=== PATIENT | female | born 2000 | race American Indian/Alaskan Native ===

== ENCOUNTER 2018-06-05 21:51 | Outpatient (CLI) | payer MEDICAID ==
[2018-06-05 22:20] VITALS: BP 114/72
[2018-06-05] MEDS ORDERED: LACTATED RINGERS 1,000 ML ONE (22:52)
[2018-06-05] MEDS ORDERED: LACTATED RINGERS 1,000 ML IV ONE (23:02)
[2018-06-06] LABS: Bilirubin,Urine NEG (Negative); Blood,Urine NEG (Negative); Color,Urine Yellow (Yellow); Hyaline Casts,Urine 6 /LPF; Protein,Urine <15 mg/dL mg/dL (Negative); RBC,Urine < 1.0 /HPF (0.0-6.0); Urobilinogen,Urine < 2.0 mg/dL (<2.0)
--- NOTE | 2018-06-06 01:47 | Ultrasound Report ---
FINAL REPORT PROCEDURE: US OB BPP WO NON-STRESS TECHNIQUE: Real-time limited sonographic examination was performed for evaluation of size, position, heartbeat, fluid volume for each fetus with image documentation (1 or more fetuses). CPT 76728 HISTORY: decrease movement COMPARISON: No prior studies are available for comparison. FINDINGS: biophysical profile: The breathing movements: 2. movements: 2. posterior and tone: 2. Amniotic fluid volume: 2. Total score: 8/8. heart rate 155 beats per minute. The amniotic fluid index 14.3 centimeters. IMPRESSION: Normal biophysical profile..
--- NOTE | 2018-06-06 01:55 | Ultrasound Report ---
FINAL REPORT EXAM: US OB LIMITED HISTORY: decrease movement COMPARISON: Biophysical profile study from the same date. TECHNIQUE: Several real-time grayscale and color Doppler images were obtained. FINDINGS: Single live IUP. Limited exam performed for evaluation of amniotic fluid. heart rate 155 beats per minute. BENITO within normal limits 14.3 centimeters. IMPRESSION: Limited exam performed for evaluation of amniotic fluid index. BENITO 14.3 centimeters. Single live IUP demonstrated.
== END 2018-06-06 00:25 | disposition home or self-care (01) ==
LOC: TRG 21:51 → LD 22:07 → TRG 06-06 00:25
PROVIDERS: ATTEND Obstetrics & Gynecology
DX: O62.8 Other abnormalities of forces of labor (principal); O46.93 Antepartum hemorrhage, unspecified, third trimester; Z3A.35 35 weeks gestation of pregnancy
CPT/HCPCS: 59025; 76815; 76819; 81001; 96360; J7120

== ENCOUNTER 2018-06-08 19:48 | Outpatient (CLI) | payer MEDICAID ==
[2018-06-08 20:05] VITALS: BP 124/64
[2018-06-08 21:10] LABS: Bacteria,Urine 4+ /HPF (Negative); Bilirubin,Urine NEG (Negative); Blood,Urine SM (Negative); Color,Urine Yellow (Yellow); Mucus,Urine FEW /HPF; Protein,Urine <15 mg/dL mg/dL (Negative); Urobilinogen,Urine < 2.0 mg/dL (<2.0)
[2018-06-08 21:12] LABS: WBC,Urine > 182.0 /HPF (0.0-6.0)
[2018-06-08] MEDS ORDERED: LACTATED RINGERS 1,000 ML ONE (21:22)
[2018-06-08] MEDS ORDERED: LACTATED RINGERS 1,000 ML IV SCH (22:00)
[2018-06-08] MEDS ORDERED: TYLENOL PO ONE (22:02)
== END 2018-06-08 23:55 | disposition home or self-care (01) ==
LOC: TRG 19:48
PROVIDERS: ATTEND Obstetrics & Gynecology
DX: O62.8 Other abnormalities of forces of labor (principal); O26.893 Other specified pregnancy related conditions, third trimester; M54.9 Dorsalgia, unspecified; Z3A.35 35 weeks gestation of pregnancy
CPT/HCPCS: 59025; 81001; J7120

== ENCOUNTER 2019-02-19 13:44 | Emergency (ER) | payer MEDICAID ==
--- NOTE | 2019-02-19 13:59 | Emergency Department Report ---
Blank Doc - Documentation Documentation: This is a 18-year-old female that presents with SOB. Denies any chest pain. This initial assessment/diagnostic orders/clinical plan/treatment(s) is/are subject to change based on patient's health status, clinical progression and re- assessment by fellow clinical providers in the ED. Further treatment and workup at subsequent clinical providers discretion. Patient/guardians urged not to elope from the ED as their condition may be serious if not clinically assessed and managed. Initial orders include: 1- Patient sent to [facility] for further evaluation and treatment 2- EKG 3- CXR
[2019-02-19 14:00] VITALS: BP 106/68
[2019-02-19 14:56] LABS: Eosinophils # (Auto) 0.1 K/mm3 (0.0-0.4); Eosinophils % (Auto) 1.5 % (0.0-4.3); Monocytes # (Auto) 0.4 K/mm3 (0.0-0.8); Monocytes % (Auto) 6.5 % (0.0-7.3)
[2019-02-19 15:16] LABS: BUN/Creatinine Ratio 16; Blood Urea Nitrogen 13 mg/dL (7-17); Calcium 9.9 mg/dL (8.4-10.2); Hemolysis Index 12
[2019-02-19 15:29] LABS: Basophils % (Auto) 0.8 % (0.0-1.8); Hematocrit 41.1 % (30.3-42.9); Hemoglobin 13.2 gm/dl (10.1-14.3); Lymphocytes # (Auto) 1.7 K/mm3 (1.2-5.4); Lymphocytes % (Auto) 26.5 % (13.4-35.0); Mean Corpuscular HGB Conc 32 % (30-34); Mean Corpuscular Volume 79 fl (79-97); Platelet Count 333 K/mm3 (140-440); Red Blood Count 5.18 M/mm3 (3.65-5.03); Red Cell Distribution Width 15.7 % (13.2-15.2)
--- NOTE | 2019-02-19 15:43 | XRay Report ---
ROUTINE CHEST, TWO VIEWS: HISTORY: Short of breath. The trachea, heart, mediastinal contour, lung romero and bony thorax are unremarkable. IMPRESSION: Unremarkable chest x-ray.
--- NOTE | 2019-02-19 15:44 | Emergency Department Report ---
- General Chief complaint: Medical Clearance Stated complaint: CHEST PAIN/SOB/LIGHTHEADED Time Seen by Provider: 02/19/19 13:58 Source: patient Mode of arrival: Ambulatory Limitations: No Limitations - History of Present Illness Initial comments: Cathleen is a 18 yo female who presents with shortness and malaise for the past 2 days. Feels flushed at night. [place] her iron was low. Denies pain. MD Complaint: generalized weakness -: Gradual Location: generalized Severity scale (0 -10): 0 Consistency: intermittent Improves with: none Worsens with: other (worse when she lays down at night) Associated Symptoms: denies other symptoms - Related Data Home Medications Medication Instructions Recorded Confirmed Last Taken Vit,Calc76/Iron/Folic 1 tab PO DAILY 06/06/18 07/02/18 07/01/18 [Pnv 29-1 Tablet] Allergies Allergy/AdvReac Type Severity Reaction Status Date / Time No Known Allergies Allergy Verified 07/02/18 23:24 ED Review of Systems ROS: Stated complaint: CHEST PAIN/SOB/LIGHTHEADED Other details as noted in HPI Comment: All other systems reviewed and negative Constitutional: malaise. denies: fever Respiratory: denies: cough Cardiovascular: denies: chest pain ED Past Medical Hx - Past Medical History Previous Medical History?: No Hx Hypertension: No Hx Diabetes: No Hx Deep Vein Thrombosis: No Hx Renal Disease: No Hx Sickle Cell Disease: No Hx Seizures: No Hx Asthma: No Hx HIV: No - Surgical History Past Surgical History?: No - Social History Smoking Status: Never Smoker Substance Use Type: None - Medications Home Medications: Home Medications Medication Instructions Recorded Confirmed Last Taken Type Vit,Calc76/Iron/Folic 1 tab PO DAILY 06/06/18 07/02/18 07/01/18 History [Pnv 29-1 Tablet] ED Physical Exam - General Limitations: No Limitations General appearance: alert, in no apparent distress - Head Head exam: Present: atraumatic, normocephalic - Eye Eye exam: Present: normal appearance - ENT ENT exam: Present: mucous membranes moist - Neck Neck exam: Present: normal inspection, full ROM - Respiratory Respiratory exam: Present: normal lung sounds bilaterally. Absent: respiratory distress, wheezes, rales, rhonchi - Cardiovascular Cardiovascular Exam: Present: regular rate, normal rhythm, normal heart sounds. Absent: systolic murmur, diastolic murmur, rubs, gallop - GI/Abdominal GI/Abdominal exam: Present: soft, normal bowel sounds. Absent: distended, tenderness - Extremities Exam Extremities exam: Present: normal inspection - Back Exam Back exam: Present: normal inspection - Neurological Exam Neurological exam: Present: alert, oriented X3 - Psychiatric Psychiatric exam: Present: normal affect, normal mood - Skin Skin exam: Present: warm, dry, intact, normal color. Absent: rash ED Course Vital Signs 02/19/19 13:58 Temperature 98.5 F Pulse Rate 83 Respiratory 16 Rate Blood Pressure 106/68 O2 Sat by Pulse 99 Oximetry ED Medical Decision Making - Lab Data Result diagrams: 02/19/19 14:50 02/19/19 14:50 - Radiology Data Radiology results: report reviewed interpreted by me: Chest X-ray PA/Lateral two-view radiographs, interpreted by me. My impression: No infiltrate, no pneumothorax, normal cardiac silhouette, normal mediastinum, no gross osseous abnormality, no acute process - Medical Decision Making Cathleen appears well with mild malaise and shortness of breath. Normal w/u. Normal chest x-ray CBC chemistry.PERC negative for PE Given reassurance and referral to clinic. Critical care attestation.: If time is entered above; I have spent that time in minutes in the direct care of this critically ill patient, excluding procedure time. ED Disposition Clinical Impression: Dyspnea, Generalized weakness Disposition: DC-01 TO HOME OR SELFCARE Is pt being admited?: No Does the pt Need Aspirin: No Condition: Stable Instructions: Dyspnea (ED), Weakness (ED) Referrals: [facility] [Outside] - 3-5 Days Forms: Work/School Release Form(ED)
== END 2019-02-19 16:00 | disposition home or self-care (01) ==
LOC: ED 13:44
DX: R53.81 Other malaise (principal); R06.00 Dyspnea, unspecified; R53.1 Weakness
CPT/HCPCS: 36415; 71046; 80048; 85025; 93005; 93010; 99284

== ENCOUNTER 2019-04-03 07:04 | Emergency (ER) | payer MEDICAID ==
[2019-04-03 07:48] VITALS: BP 120/76
--- NOTE | 2019-04-03 09:10 | Emergency Department Report ---
ED General Adult HPI - General Chief complaint: Wound/Laceration Stated complaint: LACERATION TO RIGHT EYE Time Seen by Provider: 04/03/19 08:59 Source: patient Mode of arrival: Ambulatory Limitations: No Limitations - History of Present Illness Initial comments: Patient is a 18-year-old female who suffered a small laceration at the right advent. Patient states she was reaching down to grab her follow and she hit the right side of her face on a picture that was on the nightstand. Patient has a small laceration to the right advent. Bleeding was controlled prior to arrival. Patient states she has 3 out of 10 pain as aching and throbbing. Patient denies any loss consciousness. - Related Data Home Medications Medication Instructions Recorded Confirmed Last Taken Vit,Calc76/Iron/Folic 1 tab PO DAILY 06/06/18 07/02/18 07/01/18 [Pnv 29-1 Tablet] Allergies Allergy/AdvReac Type Severity Reaction Status Date / Time No Known Allergies Allergy Verified 04/03/19 07:06 ED Review of Systems ROS: Stated complaint: LACERATION TO RIGHT EYE Other details as noted in HPI Comment: All other systems reviewed and negative ED Past Medical Hx - Past Medical History Hx Hypertension: No Hx Diabetes: No Hx Deep Vein Thrombosis: No Hx Renal Disease: No Hx Sickle Cell Disease: No Hx Seizures: No Hx Asthma: No Hx HIV: No - Social History Smoking Status: Never Smoker Substance Use Type: None - Medications Home Medications: Home Medications Medication Instructions Recorded Confirmed Last Taken Type Vit,Calc76/Iron/Folic 1 tab PO DAILY 06/06/18 07/02/18 07/01/18 History [Pnv 29-1 Tablet] ED Physical Exam - General Limitations: No Limitations General appearance: alert, in no apparent distress - Head Head exam: Present: normocephalic. Absent: atraumatic (small 1cm laceration to the rightb advent) - Eye Eye exam: Present: normal appearance, PERRL, EOMI - ENT ENT exam: Present: mucous membranes moist - Respiratory Respiratory exam: Absent: respiratory distress - Extremities Exam Extremities exam: Present: normal inspection, full ROM - Neurological Exam Neurological exam: Present: alert, altered, oriented X3 - Skin Skin exam: Present: warm, dry, normal color ED Course Vital Signs 04/03/19 07:47 Temperature 97.6 F Pulse Rate 72 Respiratory 16 Rate Blood Pressure 120/76 O2 Sat by Pulse 98 Oximetry - Laceration /Wound Repair Right Face Wound Location: head Wound Length (cm): 1 Wound's Depth, Shape: superficial, linear Wound Explored: clean Irrigated w/ Saline (ccs): 100 Betadine Prep?: No Wound Repaired With: Dermabond ED Medical Decision Making - Medical Decision Making Patient is a 18-year-old female suffered a small laceration to the right advent. This was closed Dermabond. Patient tolerated procedure well. Patient be discharged home. Critical care attestation.: If time is entered above; I have spent that time in minutes in the direct care of this critically ill patient, excluding procedure time. ED Disposition Clinical Impression: Laceration Disposition: DC-01 TO HOME OR SELFCARE Is pt being admited?: No Does the pt Need Aspirin: No Condition: Stable Instructions: Skin Adhesive Care (ED) Referrals: NAI GALVAN MD [Primary Care Provider] - 3-5 Days Forms: Work/School Release Form(ED) Time of Disposition: 09:09
== END 2019-04-03 09:33 | disposition home or self-care (01) ==
LOC: ED 07:04
DX: S01.81XA Laceration without foreign body of other part of head, initial encounter (principal); W22.8XXA Striking against or struck by other objects, initial encounter; Y93.89 Activity, other specified; Y92.89 Other specified places as the place of occurrence of the external cause; Y99.8 Other external cause status
CPT/HCPCS: 99282

== ENCOUNTER 2019-11-15 09:49 | Emergency (ER) | payer SELFPAY ==
--- NOTE | 2019-11-15 12:37 | Emergency Department Report ---
HPI - General Chief Complaint: Sore Throat Time Seen by Provider: 11/15/19 12:16 - HPI HPI: This is a 19-year-old female here yesterday to be checked for strep throat due to complaining of sore throat for 3-4 days. Strep test yesterday was negative and patient returned today said that she do not she has strep throat because she has lots of pus and redness of the throat, painful throat with or without swallowing, she said her neck decides are swollen and she had a temperature of 101 last night that she took medication for. Any drooling, cough or difficulty breathing. Has any chest pain or shortness of breath. Reports chills but denies any fever. Pain is constant but worse with swallowing. Pain is burning. ED Past Medical Hx - Past Medical History Previous Medical History?: No Hx Hypertension: No Hx Diabetes: No Hx Deep Vein Thrombosis: No Hx Renal Disease: No Hx Sickle Cell Disease: No Hx Seizures: No Hx Asthma: No Hx HIV: No - Surgical History Past Surgical History?: No - Family History Family history: hypertension - Social History Smoking Status: Never Smoker Substance Use Type: None - Medications Home Medications: Home Medications Medication Instructions Recorded Confirmed Last Taken Type Vit,Calc76/Iron/Folic 1 tab PO DAILY 06/06/18 07/02/18 07/01/18 History [Pnv 29-1 Tablet] Ibuprofen [Motrin] 800 mg PO Q8HR PRN #12 tablet 11/15/19 Unknown Rx Penicillin V Potassium 500 mg PO Q8H 10 Days #30 tablet 11/15/19 Unknown Rx ED Review of Systems ROS: Stated complaint: SORE THROAT Other details as noted in HPI Constitutional: chills, fever ENT: throat pain. denies: ear pain, dental pain, hearing loss, congestion Respiratory: denies: cough, shortness of breath, SOB with exertion, wheezing Gastrointestinal: denies: abdominal pain, vomiting Musculoskeletal: denies: back pain, arthralgia Skin: denies: rash Neurological: denies: headache, numbness, paresthesias, abnormal gait, vertigo Physical Exam - Physical Exam General: 19-year-old female well-nourished well-developed in no acute distress. Physical Exam: Head: Normocephalic atraumatic Ears:BIateral TM pearly torres . Per EAC with normal exam. No mastoid bone tenderness. Mouth: Moist, Positive pharyngeal erythema and exudate . Negative tonsillar enlargement. . UVULA midline and oral airways patent. No peritonsillar abscess Neck: Nontender to palpate, supple, normal range of motion. positive cervical adenopathy. No c-spine tenderness. Nose: Bilateral nasal mucosa normal exam Eyes: Bilateral Sclerae and conjunctiva without injection. Bilateral pupils equal and reactive to light. Bilateral lids are normal. Lungs: Clear to auscultate bilaterally, no rhonchi wheezes or rales. Normal work of breathing and no chest wall tenderness CV: S1, S2. Regular rate and rhythm negative murmur. Abdomen: Nontender to palpation in all quadrants: No guarding or rebound tenderness. Positive bowel sounds in all quadrants Extremity: No clubbing, cyanosis or edema. +2 pulses Skin: Clean dry and intact, no rashes or lesions Psych: Normal mood and behavior ED Course - Reevaluation(s) Reevaluation #1: 11/15/19 12:51 Patient's stable throughout ED course. Discharge home with prescription for penicillin and Motrin ED Medical Decision Making - Medical Decision Making This is a 19-year-old female here for complaints of ongoing sore throat and reports that she was here yesterday and this was done and they report that was negative. Based on [facility] criteria with patient having bilateral anterior cervical lymph nodes, chills, pharyngeal erythema with cobblestoning and malodorous breath with absence of cough or any other respiratory symptoms. I will go ahead and treat her for strep. She said her strep test yesterday was negative. I discuss treatment palpation and she voiced understanding. I also discussed that she needs to follow-up with primary care and if she does not have one to follow-up with some [facility] and if she develops difficulty breathing or any other symptoms this worsening to return to emergency room. Discharge home with prescription for PCN and motrin Critical care attestation.: If time is entered above; I have spent that time in minutes in the direct care of this critically ill patient, excluding procedure time. ED Disposition Clinical Impression: Exudative pharyngitis Disposition: DC-01 TO HOME OR SELFCARE Is pt being admited?: No Does the pt Need Aspirin: No Condition: Stable Instructions: Pharyngitis (ED), Strep Throat (ED) Additional Instructions: gargle warm salt water 3-4 times a day Take medication as prescribed and make sure you take all antibiotic as prescribed and take Motrin with food as this can cause some irritation to stomach lining when taken an empty stomach F/U with primary care physician as discussed and 2-3 days If he condition worsens, return to the emergency room Referrals: PRIMARY CARE, [Primary Care Provider] - 2-3 Days [facility] [Outside] - 2-3 Days Forms: Work/School Release Form(ED)
[2019-11-15 12:53] VITALS: BP 126/81
== END 2019-11-15 13:14 | disposition home or self-care (01) ==
LOC: ED 09:49
DX: J02.9 Acute pharyngitis, unspecified (principal); Z79.899 Other long term (current) drug therapy

== ENCOUNTER 2019-12-11 20:57 | Emergency (ER) | payer SELFPAY ==
[2019-12-11 21:03] VITALS: BP 129/71
--- NOTE | 2019-12-11 22:14 | Emergency Department Report ---
Blank Doc - Documentation Documentation: 19-year-old female that presents with abscess to buttock area. This initial assessment/diagnostic orders/clinical plan/treatment(s) is/are subject to change based on patient's health status, clinical progression and re- assessment by fellow clinical providers in the ED. Further treatment and workup at subsequent clinical providers discretion. Patient/guardians urged not to elope from the ED as their condition may be serious if not clinically assessed and managed. Initial orders include: 1- Patient sent to [facility] for further evaluation and treatment
[2019-12-11] MEDS ORDERED: SULFAMETHOXAZOLE/TRIMETHOPRIM 800/160MG DS TAB PO ONE (23:35)
[2019-12-11] MEDS ORDERED: ONDANSETRON 4 MG ODT TAB PO ONE (23:35)
[2019-12-11] MEDS ORDERED: IBUPROFEN 600 MG TAB PO ONE (23:35)
[2019-12-11] MEDS ORDERED: ACETAMINOPHEN 500 MG TAB PO ONE (23:35)
[2019-12-11] MEDS ORDERED: CLINDAMYCIN 300 MG CAP PO ONE (23:36)
[2019-12-12 00:43] LABS: HCG Qualitative,Urine Negative (Negative)
[2019-12-12 00:58] LABS: Bacteria,Urine 2+ /HPF (Negative); Bilirubin,Urine NEG (Negative); Blood,Urine NEG (Negative); Color,Urine Yellow (Yellow); Mucus,Urine 2+ /HPF; Urobilinogen,Urine < 2.0 mg/dL (<2.0)
--- NOTE | 2019-12-12 01:05 | Emergency Department Report ---
ED General Adult HPI - General Chief complaint: Skin/Abscess/Foreign Body Stated complaint: RAQUEL BUTTOCK PAIN Time Seen by Provider: 12/11/19 22:13 Source: patient Mode of arrival: Ambulatory Limitations: No Limitations - History of Present Illness Initial comments: Patient is A0 19-year-old -[place] female with no past medical history who presents to the ED with complaint of acute onset persistent painful swollen mild erythematous maculopapular nonfluctuant rash on pilonidal area for the last 3 weeks, worse in the last 2 days. Patient denies fever, chills, nausea, vomiting, chest pain, shortness of breath, abdominal pain, urinary or bowel incontinence, saddle paresthesia, dizziness, dysuria or urinary frequency and urgency and vaginal bleeding. MD Complaint: painful swollen erythematous rash on pilonidal rash -: Sudden, week(s) (3) Location: buttocks Radiation: non-radiation Severity scale (0 -10): 10 Quality: aching, sharp Consistency: constant Improves with: none Worsens with: none Associated Symptoms: denies other symptoms. denies: confusion, chest pain, cough, diaphoresis, fever/chills, headaches, loss of appetite, malaise, nausea/vomiting, rash, shortness of breath, syncope, weakness Treatments Prior to Arrival: none - Related Data Home Medications Medication Instructions Recorded Confirmed Last Taken Vit,Calc76/Iron/Folic 1 tab PO DAILY 06/06/18 07/02/18 07/01/18 [Pnv 29-1 Tablet] Previous Rx's Medication Instructions Recorded Last Taken Type Penicillin V Potassium 500 mg PO Q8H 10 Days #30 tablet 11/15/19 Unknown Rx Acetaminophen/Codeine [Tylenol 1 tab PO Q6H PRN #12 tab 12/12/19 Unknown Rx /Codeine # 3 tab] Clindamycin [Clindamycin CAP] 300 mg PO Q8HR #60 capsule 12/12/19 Unknown Rx Ibuprofen [Motrin 800 MG tab] 800 mg PO Q8HR PRN #30 tablet 12/12/19 Unknown Rx Sulfamethoxazole/Trimethoprim 1 each PO Q12H #20 tablet 12/12/19 Unknown Rx [Bactrim DS TAB] Allergies Allergy/AdvReac Type Severity Reaction Status Date / Time No Known Allergies Allergy Verified 04/03/19 07:06 ED Review of Systems ROS: Stated complaint: RAQUEL BUTTOCK PAIN Other details as noted in HPI Constitutional: denies: chills, fever Eyes: denies: eye pain, eye discharge, vision change ENT: denies: ear pain, throat pain Respiratory: denies: cough, shortness of breath, wheezing Cardiovascular: denies: chest pain, palpitations Endocrine: no symptoms reported Gastrointestinal: denies: abdominal pain, nausea, diarrhea Genitourinary: denies: urgency, dysuria, discharge Musculoskeletal: denies: back pain, joint swelling, arthralgia Skin: rash (pilonidal swollen rash), change in color (swollen mildly painful maculopapular rash on pilonidal area). denies: lesions Neurological: denies: headache, weakness, paresthesias Psychiatric: denies: anxiety, depression Hematological/Lymphatic: denies: easy bleeding, easy bruising ED Past Medical Hx - Past Medical History Previous Medical History?: No Hx Hypertension: No Hx Diabetes: No Hx Deep Vein Thrombosis: No Hx Renal Disease: No Hx Sickle Cell Disease: No Hx Seizures: No Hx Asthma: No Hx HIV: No - Surgical History Past Surgical History?: No - Social History Smoking Status: Never Smoker Substance Use Type: None - Medications Home Medications: Home Medications Medication Instructions Recorded Confirmed Last Taken Type Vit,Calc76/Iron/Folic 1 tab PO DAILY 06/06/18 07/02/18 07/01/18 History [Pnv 29-1 Tablet] Penicillin V Potassium 500 mg PO Q8H 10 Days #30 tablet 11/15/19 Unknown Rx Acetaminophen/Codeine [Tylenol 1 tab PO Q6H PRN #12 tab 12/12/19 Unknown Rx /Codeine # 3 tab] Clindamycin [Clindamycin CAP] 300 mg PO Q8HR #60 capsule 12/12/19 Unknown Rx Ibuprofen [Motrin 800 MG tab] 800 mg PO Q8HR PRN #30 tablet 12/12/19 Unknown Rx Sulfamethoxazole/Trimethoprim 1 each PO Q12H #20 tablet 12/12/19 Unknown Rx [Bactrim DS TAB] ED Physical Exam - General Limitations: No Limitations General appearance: alert, in no apparent distress - Head Head exam: Present: atraumatic, normocephalic, normal inspection - Eye Eye exam: Present: normal appearance, PERRL, EOMI Pupils: Present: normal accommodation - ENT ENT exam: Present: normal exam, normal orophraynx, mucous membranes moist, TM's normal bilaterally, normal external ear exam - Neck Neck exam: Present: normal inspection, full ROM. Absent: tenderness, lymphadenopathy - Respiratory Respiratory exam: Present: normal lung sounds bilaterally. Absent: respiratory distress, wheezes, rales, rhonchi, chest wall tenderness, accessory muscle use, decreased breath sounds, prolonged expiratory - Cardiovascular Cardiovascular Exam: Present: regular rate, normal rhythm, normal heart sounds. Absent: systolic murmur, diastolic murmur, rubs, gallop - GI/Abdominal GI/Abdominal exam: Present: soft, normal bowel sounds. Absent: tenderness, rebound, hyperactive bowel sounds, hypoactive bowel sounds - Extremities Exam Extremities exam: Present: normal inspection, full ROM, normal capillary refill - Back Exam Back exam: Present: normal inspection, full ROM. Absent: tenderness, CVA tenderness (R), CVA tenderness (L), muscle spasm, paraspinal tenderness, vertebral tenderness - Neurological Exam Neurological exam: Present: alert, oriented X3, CN II-XII intact, normal gait, reflexes normal - Psychiatric Psychiatric exam: Present: normal affect, normal mood - Skin Skin exam: Present: warm, dry, intact, normal color, rash (swollen tender palpable pilonidal maculopapular nonfluctuant rash) ED Course Vital Signs 12/11/19 21:02 Temperature 98.3 F Pulse Rate 107 H Respiratory 20 Rate Blood Pressure 129/71 O2 Sat by Pulse 97 Oximetry ED Medical Decision Making - Medical Decision Making This is a 19-year-old A0 -F[place] female with no past medical history who presented to the ED with painful swollen mildly erythematous nonfluctuant maculopapular rash on pilonidal area for the last 3 weeks worse in the last 2 days. In the ED, patient is alert and oriented x3 and is not in distress but appears to be in pain. Patient was treated for pain in the ED and also given initial oral antibiotics in the ED. Urinalysis shows negative hCG test and significant urinary tract infection. Patient was discharged home on antibiotics and pain medications and was advised to return to the ED immediately if symptoms get worse otherwise follow-up with her primary care physician in 7 to 10 days for reevaluation. - Differential Diagnosis abscess; cellulitis; folliculitis; pilonidal abscess Critical care attestation.: If time is entered above; I have spent that time in minutes in the direct care of this critically ill patient, excluding procedure time. ED Disposition Clinical Impression: Pilonidal cyst with abscess, Acute urinary tract infection Disposition: TO HOME OR SELFCARE Is pt being admited?: No Does the pt Need Aspirin: No Condition: Stable Instructions: Cellulitis (ED), Abscess (ED) Additional Instructions: Take medication with food, drink plenty of fluids and follow up with your Primary Care Physician in 7-10 days for reevaluation. Return to the ED immediately if symptoms get worse Prescriptions: Sulfamethoxazole/Trimethoprim [Bactrim DS TAB] 1 each PO Q12H #20 tablet Clindamycin [Clindamycin CAP] 300 mg PO Q8HR #60 capsule Ibuprofen [Motrin 800 MG tab] 800 mg PO Q8HR PRN #30 tablet PRN Reason: pain Acetaminophen/Codeine [Tylenol /Codeine # 3 tab] 1 tab PO Q6H PRN #12 tab PRN Reason: Pain , Severe (7-10) Referrals: [facility] [Outside] - 7-10 days Forms: Work/School Release Form(ED) Time of Disposition: : Print Language: BELARUSIAN
== END 2019-12-12 01:15 | disposition home or self-care (01) ==
LOC: ED 20:57
DX: L05.01 Pilonidal cyst with abscess (principal); N39.0 Urinary tract infection, site not specified
CPT/HCPCS: 81001; 81025; 87086; 99283; Q0162

== ENCOUNTER 2020-07-15 21:02 | Emergency (ER) | payer MEDICAID ==
[2020-07-15 22:26] VITALS: BP 112/69
[2020-07-15 22:47] LABS: Basophils # (Auto) 0.1 K/mm3 (0.0-0.1); Basophils % (Auto) 0.6 % (0.0-1.8); Eosinophils # (Auto) 0.1 K/mm3 (0.0-0.4); Eosinophils % (Auto) 1.1 % (0.0-4.3); Hematocrit 38.6 % (30.3-42.9); Hemoglobin 12.5 gm/dl (10.1-14.3); Lymphocytes # (Auto) 2.5 K/mm3 (1.2-5.4); Lymphocytes % (Auto) 26.4 % (13.4-35.0); Mean Corpuscular HGB Conc 32 % (30-34); Mean Corpuscular Volume 79 fl (79-97); Monocytes % (Auto) 10.5 % (0.0-7.3); Platelet Count 325 K/mm3 (140-440); Red Blood Count 4.86 M/mm3 (3.65-5.03); Red Cell Distribution Width 16.5 % (13.2-15.2)
[2020-07-15 23:40] LABS: Bilirubin,Urine NEG (Negative); Blood,Urine NEG (Negative); Color,Urine Straw (Yellow); Mucus,Urine FEW /HPF; Protein,Urine <15 mg/dL mg/dL (Negative); Urobilinogen,Urine < 2.0 mg/dL (<2.0)
--- NOTE | 2020-07-16 00:43 | Ultrasound Report ---
OBSTETRICAL ULTRASOUND HISTORY: Abdominal pain. FINDINGS: The uterus measures 11.3 x 6.7 x 5.8 cm. The endometrial stripe measures 11 mm. No intraute rine is identified. Right ovary measures 3.5 x 2.9 x 2.7 cm. Left ovary measures 3.6 x 2.4 x 2.7 cm. Both ovaries demonst rate flow. Negative for adnexal mass or fluid. IMPRESSION: 1. Mildly prominent endometrial stripe without intrauterine . 2. Adnexa are unremarkable. Signer Name: Christopher Ovalle MD Signed: 07/16/2020 12:39 AM Workstation Name: [id number]
[2020-07-16] MEDS ORDERED: ACETAMINOPHEN 500 MG TAB PO ONE (01:28)
[2020-07-16] MEDS ORDERED: cephALEXin 500 MG CAP PO ONE (01:28)
--- NOTE | 2020-07-16 01:48 | Emergency Department Report ---
ED Abdominal Pain HPI - General Chief Complaint: Abdominal Pain Stated Complaint: 6WKS PREG/CRAMPING Time Seen by Provider: 07/16/20 01:14 Source: patient Mode of arrival: Ambulatory Limitations: No Limitations - History of Present Illness Initial Comments: Patient is a 19-year-old female who presents for bilateral lower abdominal cramping and pain for over 10 x 2 days. Patient states she presented for a elective on yesterday. Advise no noted on exam by physician and ultrasound on yesterday. Presents today for abdominal cramping. Patient denies vaginal bleeding. There is no dysuria frequency or urgency. Patient denies nausea vomiting no fever or chills. Patient has follow-up appointment with [facility] on 28 July. Presents tonight for follow-up ultrasound. Patient is currently alert oriented x3 she is tolerating p.o. intake without symptoms. pt is G1, P0, A0. LMP 07/03/2020, she denies hx of ovarian cyst or fibroids MD Complaint: abdominal pain - Related Data Home Medications Medication Instructions Recorded Confirmed Last Taken Vit,Calc76/Iron/Folic 1 tab PO DAILY 06/06/18 07/02/18 07/01/18 [Pnv 29-1 Tablet] Previous Rx's Medication Instructions Recorded Last Taken Type Penicillin V Potassium 500 mg PO Q8H 10 Days #30 tablet 11/15/19 Unknown Rx Acetaminophen/Codeine [Tylenol 1 tab PO Q6H PRN #12 tab 12/12/19 Unknown Rx /Codeine # 3 tab] Clindamycin [Clindamycin CAP] 300 mg PO Q8HR #60 capsule 12/12/19 Unknown Rx Ibuprofen [Motrin 800 MG tab] 800 mg PO Q8HR PRN #30 tablet 12/12/19 Unknown Rx Sulfamethoxazole/Trimethoprim 1 each PO Q12H #20 tablet 12/12/19 Unknown Rx [Bactrim DS TAB] Acetaminophen [Mapap] 650 mg PO Q6H PRN #30 tablet 07/16/20 Unknown Rx cephALEXin [Keflex] 500 mg PO BID 7 Days #14 cap 07/16/20 Unknown Rx Allergies Allergy/AdvReac Type Severity Reaction Status Date / Time No Known Allergies Allergy Verified 04/03/19 07:06 ED Review of Systems ROS: Stated complaint: 6WKS PREG/CRAMPING Other details as noted in HPI Constitutional: denies: chills, fever Eyes: denies: eye pain, eye discharge, vision change ENT: denies: ear pain, throat pain Respiratory: denies: cough, shortness of breath, wheezing Cardiovascular: denies: chest pain, palpitations Endocrine: no symptoms reported Gastrointestinal: abdominal pain (cramping ). denies: nausea, vomiting, diarrhea, melena Genitourinary: denies: urgency, dysuria, discharge Musculoskeletal: denies: back pain, joint swelling, arthralgia Skin: denies: rash, lesions Neurological: denies: headache, weakness, paresthesias Psychiatric: denies: anxiety, depression Hematological/Lymphatic: as per HPI ED Past Medical Hx - Past Medical History Previous Medical History?: No Hx Hypertension: No Hx Diabetes: No Hx Deep Vein Thrombosis: No Hx Renal Disease: No Hx Sickle Cell Disease: No Hx Seizures: No Hx Asthma: No Hx HIV: No - Surgical History Past Surgical History?: No - Social History Smoking Status: Never Smoker Substance Use Type: None - Medications Home Medications: Home Medications Medication Instructions Recorded Confirmed Last Taken Type Vit,Calc76/Iron/Folic 1 tab PO DAILY 06/06/18 07/02/18 07/01/18 History [Pnv 29-1 Tablet] Penicillin V Potassium 500 mg PO Q8H 10 Days #30 tablet 11/15/19 Unknown Rx Acetaminophen/Codeine [Tylenol 1 tab PO Q6H PRN #12 tab 12/12/19 Unknown Rx /Codeine # 3 tab] Clindamycin [Clindamycin CAP] 300 mg PO Q8HR #60 capsule 12/12/19 Unknown Rx Ibuprofen [Motrin 800 MG tab] 800 mg PO Q8HR PRN #30 tablet 12/12/19 Unknown Rx Sulfamethoxazole/Trimethoprim 1 each PO Q12H #20 tablet 12/12/19 Unknown Rx [Bactrim DS TAB] Acetaminophen [Mapap] 650 mg PO Q6H PRN #30 tablet 07/16/20 Unknown Rx cephALEXin [Keflex] 500 mg PO BID 7 Days #14 cap 07/16/20 Unknown Rx ED Physical Exam - General Limitations: No Limitations General appearance: alert, in no apparent distress - Head Head exam: Present: atraumatic, normocephalic - Eye Eye exam: Present: normal appearance, EOMI Pupils: Present: normal accommodation - ENT ENT exam: Present: mucous membranes moist - Neck Neck exam: Present: normal inspection - Respiratory Respiratory exam: Present: normal lung sounds bilaterally. Absent: respiratory distress, wheezes, stridor, chest wall tenderness - Cardiovascular Cardiovascular Exam: Present: regular rate, normal rhythm, normal heart sounds. Absent: systolic murmur, diastolic murmur, rubs, gallop - GI/Abdominal GI/Abdominal exam: Present: soft, normal bowel sounds. Absent: distended, tenderness, guarding, rebound, rigid, bruit, hernia - Rectal Rectal exam: Present: deferred (Speak) - Extremities Exam Extremities exam: Present: normal inspection, full ROM. Absent: tenderness, pedal edema - Back Exam Back exam: Present: normal inspection, full ROM. Absent: tenderness, CVA t enderness (R), CVA tenderness (L) - Neurological Exam Neurological exam: Present: alert, oriented X3, CN II-XII intact, normal gait - Psychiatric Psychiatric exam: Present: normal affect, normal mood - Skin Skin exam: Present: warm, dry, intact, normal color. Absent: rash ED Course Vital Signs 07/15/20 07/15/20 21:10 22:18 Temperature 97.9 F 98.3 F Pulse Rate 83 92 H Respiratory 14 18 Rate Blood Pressure 181/108 112/69 O2 Sat by Pulse 99 100 Oximetry ED Medical Decision Making - Lab Data Result diagrams: 07/15/20 22:37 Labs 07/15/20 07/15/20 07/15/20 22:37 22:37 Unknown WBC 9.4 RBC 4.86 Hgb 12.5 Hct 38.6 MCV 79 MCH 26 L MCHC 32 RDW 16.5 H Plt Count 325 Lymph % (Auto) 26.4 [place] % (Auto) 10.5 H Eos % (Auto) 1.1 Baso % (Auto) 0.6 Lymph # 2.5 [place] # 1.0 H Eos # 0.1 Baso # 0.1 Seg Neutrophils % 61.4 Seg Neutrophils # 5.8 HCG, Quant 1046 H Urine Color Straw Urine Turbidity Clear Urine pH 6.0 Ur Specific [place] 1.011 Urine Protein <15 mg/dl Urine Glucose (UA) Neg Urine Ketones Neg Urine Blood Neg Urine Nitrite Neg Urine Bilirubin Neg Urine Urobilinogen < 2.0 Ur Leukocyte Esterase Lg Urine WBC (Auto) 2.0 Urine RBC (Auto) 1.0 U Epithel Cells (Auto) 6.0 Urine Mucus Few - Radiology Data Radiology results: report reviewed, image reviewed Findings Reporting MD: Christopher Ovalle Dictation Time: July 15, 2020 23:39 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 FINDINGS: The uterus measures 11.3 x 6.7 x 5.8 cm. The endometrial stripe measures 11 mm. No intrauterine is identified. Right ovary measures 3.5 x 2.9 x 2.7 cm. Left ovary measures 3.6 x 2.4 x 2.7 cm. Both ovaries demonstrate flow. Negative for adnexal mass or fluid. IMPRESSION: 1. Mildly prominent endometrial stripe without intrauterine . 2. Adnexa are unremarkable. Signer Name: Christopher Ovalle MD Signed: 07/15/2020 11:39 PM Workstation Name: [id number] - Medical Decision Making US : Mildly prominent endometrial stripe without intrauterine , Adnexa are unremarkable, Ovaries normal, HC, UA: pos for leuk, cbc: normal, there is no vaginal bleeding, plan: Keflex, Tylenol , follow up with [facility] in 2-3 days, return to emergency if symptoms worsen. pt verbalized agreement and understanding of discharge plan. Critical care attestation.: If time is entered above; I have spent that time in minutes in the direct care of this critically ill patient, excluding procedure time. ED Disposition Clinical Impression: Abnormal human chorionic gonadotropin (hCG) Abdominal pain Qualifiers: Abdominal location: lower abdomen, unspecified Qualified Code(s): R10.30 - Lower abdominal pain, unspecified UTI (urinary tract infection) Qualifiers: Urinary tract infection type: acute cystitis Hematuria presence: without hematuria Qualified Code(s): N30.00 - Acute cystitis without hematuria Disposition: - TO HOME OR SELFCARE Is pt being admited?: No Does the pt Need Aspirin: No Condition: Stable Instructions: Urinary Tract Infection in Women (ED), Threatened Miscarriage (ED) Prescriptions: cephALEXin [Keflex] 500 mg PO BID 7 Days #14 cap Acetaminophen [Mapap] 650 mg PO Q6H PRN #30 tablet PRN Reason: pain Referrals: BIBI HAGEN MD [Staff Physician] - [facility] Forms: Work/School Release Form(ED) Time of Disposition: 02:00
== END 2020-07-16 02:05 | disposition home or self-care (01) ==
LOC: ED 21:02
DX: O02.81 Inappropriate change in quantitative human chorionic gonadotropin (hCG) in early pregnancy (principal); O23.41 Unspecified infection of urinary tract in pregnancy, first trimester; Z3A.01 Less than 8 weeks gestation of pregnancy; Z79.1 Long term (current) use of non-steroidal anti-inflammatories (NSAID); Z79.2 Long term (current) use of antibiotics; Z79.899 Other long term (current) drug therapy
CPT/HCPCS: 36415; 76801; 81001; 84702; 85025

== ENCOUNTER 2020-07-21 14:36 | Emergency (ER) | payer MEDICAID ==
[2020-07-21 14:47] VITALS: BP 124/88
[2020-07-21 16:03] LABS: Blood Urea Nitrogen 12 mg/dL (7-17); Calcium 9.8 mg/dL (8.4-10.2); Hemolysis Index 5
[2020-07-21 16:08] LABS: Basophils # (Auto) 0.1 K/mm3 (0.0-0.1); Basophils % (Auto) 0.8 % (0.0-1.8); Eosinophils # (Auto) 0.1 K/mm3 (0.0-0.4); Eosinophils % (Auto) 1.4 % (0.0-4.3); Hematocrit 36.5 % (30.3-42.9); Hemoglobin 11.9 gm/dl (10.1-14.3); Lymphocytes # (Auto) 1.8 K/mm3 (1.2-5.4); Lymphocytes % (Auto) 21.6 % (13.4-35.0); Mean Corpuscular HGB Conc 33 % (30-34); Mean Corpuscular Volume 80 fl (79-97); Monocytes # (Auto) 0.5 K/mm3 (0.0-0.8); Monocytes % (Auto) 6.3 % (0.0-7.3); Platelet Count 310 K/mm3 (140-440); Red Blood Count 4.58 M/mm3 (3.65-5.03); Red Cell Distribution Width 16.3 % (13.2-15.2)
[2020-07-21 16:11] LABS: BUN/Creatinine Ratio 20
[2020-07-21 16:17] LABS: Bacteria,Urine 1+ /HPF (Negative); Bilirubin,Urine NEG (Negative); Blood,Urine LG (Negative); Color,Urine Yellow (Yellow); Mucus,Urine FEW /HPF; Urobilinogen,Urine < 2.0 mg/dL (<2.0)
[2020-07-21 16:18] LABS: RBC,Urine > 182.0 /HPF (0.0-6.0)
--- NOTE | 2020-07-21 16:47 | Emergency Department Report ---
ED General Adult HPI - General Chief complaint: Vaginal Bleeding Stated complaint: VAGINAL BLEEDING Time Seen by Provider: 07/21/20 15:34 Source: patient Mode of arrival: Ambulatory Limitations: No Limitations - History of Present Illness Initial comments: Patient is a 19-year-old female presents emergency room with complaints of vaginal bleeding and lower abdominal cramping that began this morning. She states that she is having to change her pad approximately every hour. She states that the bleeding has been improving. She states her last menstrual cycle was June 02. She denies any fever, vomiting, dysuria. Patient was evaluated in the emergency department on 07/16/2020, and at that time she had a hCG quant of 1046, she had an ultrasound performed which showed 1. Mildly prominent endometrial stripe without intrauterine . 2. Adnexa are unremarkable. She was also prescribed Keflex at that time and states that she has not really been taking it. She states that her OB group is at [facility] and she has an appointment on Sunday (07/23/2020). She denies any past medical history or allergies to medications. /P: 3/A: 0 - Related Data Home Medications Medication Instructions Recorded Confirmed Last Taken Vit,Calc76/Iron/Folic 1 tab PO DAILY 06/06/18 07/02/18 07/01/18 [Pnv 29-1 Tablet] Previous Rx's Medication Instructions Recorded Last Taken Type Penicillin V Potassium 500 mg PO Q8H 10 Days #30 tablet 11/15/19 Unknown Rx Acetaminophen/Codeine [Tylenol 1 tab PO Q6H PRN #12 tab 12/12/19 Unknown Rx /Codeine # 3 tab] Clindamycin [Clindamycin CAP] 300 mg PO Q8HR #60 capsule 12/12/19 Unknown Rx Ibuprofen [Motrin 800 MG tab] 800 mg PO Q8HR PRN #30 tablet 12/12/19 Unknown Rx Sulfamethoxazole/Trimethoprim 1 each PO Q12H #20 tablet 12/12/19 Unknown Rx [Bactrim DS TAB] Acetaminophen [Mapap] 650 mg PO Q6H PRN #30 tablet 07/16/20 Unknown Rx cephALEXin [Keflex] 500 mg PO BID 7 Days #14 cap 07/16/20 Unknown Rx Ondansetron [Zofran Odt] 4 mg PO Q8HR PRN #10 tab.rapdis 07/21/20 Unknown Rx Allergies Allergy/AdvReac Type Severity Reaction Status Date / Time No Known Allergies Allergy Verified 04/03/19 07:06 ED Review of Systems ROS: Stated complaint: VAGINAL BLEEDING Other details as noted in HPI Comment: All other systems reviewed and negative ED Past Medical Hx - Past Medical History Previous Medical History?: No Hx Hypertension: No Hx Diabetes: No Hx Deep Vein Thrombosis: No Hx Renal Disease: No Hx Sickle Cell Disease: No Hx Seizures: No Hx Asthma: No Hx HIV: No - Social History Smoking Status: Never Smoker Substance Use Type: None - Medications Home Medications: Home Medications Medication Instructions Recorded Confirmed Last Taken Type Vit,Calc76/Iron/Folic 1 tab PO DAILY 06/06/18 07/02/18 07/01/18 History [Pnv 29-1 Tablet] Penicillin V Potassium 500 mg PO Q8H 10 Days #30 tablet 11/15/19 Unknown Rx Acetaminophen/Codeine [Tylenol 1 tab PO Q6H PRN #12 tab 12/12/19 Unknown Rx /Codeine # 3 tab] Clindamycin [Clindamycin CAP] 300 mg PO Q8HR #60 capsule 12/12/19 Unknown Rx Ibuprofen [Motrin 800 MG tab] 800 mg PO Q8HR PRN #30 tablet 12/12/19 Unknown Rx Sulfamethoxazole/Trimethoprim 1 each PO Q12H #20 tablet 12/12/19 Unknown Rx [Bactrim DS TAB] Acetaminophen [Mapap] 650 mg PO Q6H PRN #30 tablet 07/16/20 Unknown Rx cephALEXin [Keflex] 500 mg PO BID 7 Days #14 cap 07/16/20 Unknown Rx Ondansetron [Zofran Odt] 4 mg PO Q8HR PRN #10 tab.rapdis 07/21/20 Unknown Rx ED Physical Exam - General Limitations: No Limitations General appearance: alert, in no apparent distress - Head Head exam: Present: atraumatic, normocephalic - Eye Eye exam: Present: normal appearance - ENT ENT exam: Present: mucous membranes moist - Respiratory Respiratory exam: Absent: respiratory distress, accessory muscle use - GI/Abdominal GI/Abdominal exam: Present: soft. Absent: distended, tenderness, guarding, rebound, rigid - Neurological Exam Neurological exam: Present: alert, oriented X3 - Psychiatric Psychiatric exam: Present: normal affect, normal mood - Skin Skin exam: Present: warm, dry, intact ED Course Vital Signs 07/21/20 14:46 Temperature 97.8 F Pulse Rate 80 Respiratory 16 Rate Blood Pressure 124/88 [Right] O2 Sat by Pulse 100 Oximetry ED Medical Decision Making - Lab Data Result diagrams: 07/21/20 15:24 07/21/20 15:24 Lab Results 07/21/20 07/21/20 07/21/20 Range/Units 15:24 15:24 15:24 WBC 8.2 (4.5-11.0) K/mm3 RBC 4.58 (3.65-5.03) M/mm3 Hgb 11.9 (10.1-14.3) gm/dl Hct 36.5 (30.3-42.9) % MCV 80 (79-97) fl MCH 26 L (28-32) pg MCHC 33 (30-34) % RDW 16.3 H (13.2-15.2) % Plt Count 310 (140-440) K/mm3 Lymph % (Auto) 21.6 (13.4-35.0) % [place] % (Auto) 6.3 (0.0-7.3) % Eos % (Auto) 1.4 (0.0-4.3) % Baso % (Auto) 0.8 (0.0-1.8) % Lymph # (Auto) 1.8 (1.2-5.4) K/mm3 [place] # (Auto) 0.5 (0.0-0.8) K/mm3 Eos # (Auto) 0.1 (0.0-0.4) K/mm3 Baso # (Auto) 0.1 (0.0-0.1) K/mm3 Seg Neutrophils % 69.9 (40.0-70.0) % Seg Neutrophils # 5.7 (1.8-7.7) K/mm3 Sodium (137-145) mmol/L Potassium (3.6-5.0) mmol/L Chloride (98-107) mmol/L Carbon Dioxide (22-30) mmol/L Anion Gap mmol/L BUN (7-17) mg/dL Creatinine (0.6-1.2) mg/dL Estimated GFR ml/min BUN/Creatinine Ratio % Glucose (65-100) mg/dL Calcium (8.4-10.2) mg/dL HCG, Quant 155.9 H (0-4) mIU/mL Urine Color (Yellow) Urine Turbidity (Clear) Urine pH (5.0-7.0) Ur Specific [place] (1.003-1.030) Urine Protein (Negative) mg/dL Urine Glucose (UA) (Negative) mg/dL Urine Ketones (Negative) mg/dL Urine Blood (Negative) Urine Nitrite (Negative) Urine Bilirubin (Negative) Urine Urobilinogen (<2.0) mg/dL Ur Leukocyte Esterase (Negative) Urine WBC (Auto) (0.0-6.0) /HPF Urine RBC (Auto) (0.0-6.0) /HPF U Epithel Cells (Auto) (0-13.0) /HPF Urine Bacteria (Auto) (Negative) /HPF Urine Mucus /HPF Blood Type A POSITIVE 07/21/20 07/21/20 Range/Units 15:24 Unknown WBC (4.5-11.0) K/mm3 RBC (3.65-5.03) M/mm3 Hgb (10.1-14.3) gm/dl Hct (30.3-42.9) % MCV (79-97) fl MCH (28-32) pg MCHC (30-34) % RDW (13.2-15.2) % Plt Count (140-440) K/mm3 Lymph % (Auto) (13.4-35.0) % [place] % (Auto) (0.0-7.3) % Eos % (Auto) (0.0-4.3) % Baso % (Auto) (0.0-1.8) % Lymph # (Auto) (1.2-5.4) K/mm3 [place] # (Auto) (0.0-0.8) K/mm3 Eos # (Auto) (0.0-0.4) K/mm3 Baso # (Auto) (0.0-0.1) K/mm3 Seg Neutrophils % (40.0-70.0) % Seg Neutrophils # (1.8-7.7) K/mm3 Sodium 140 (137-145) mmol/L Potassium 4.1 (3.6-5.0) mmol/L Chloride 100.4 (98-107) mmol/L Carbon Dioxide 28 (22-30) mmol/L Anion Gap 16 mmol/L BUN 12 (7-17) mg/dL Creatinine 0.6 (0.6-1.2) mg/dL Estimated GFR > 60 ml/min BUN/Creatinine Ratio 20 % Glucose 100 (65-100) mg/dL Calcium 9.8 (8.4-10.2) mg/dL HCG, Quant (0-4) mIU/mL Urine Color Yellow (Yellow) Urine Turbidity Cloudy (Clear) Urine pH 6.0 (5.0-7.0) Ur Specific [place] 1.016 (1.003-1.030) Urine Protein 30 mg/dl (Negative) mg/dL Urine Glucose (UA) Neg (Negative) mg/dL Urine Ketones Neg (Negative) mg/dL Urine Blood Lg (Negative) Urine Nitrite Neg (Negative) Urine Bilirubin Neg (Negative) Urine Urobilinogen < 2.0 (<2.0) mg/dL Ur Leukocyte Esterase Lg (Negative) Urine WBC (Auto) 80.0 H (0.0-6.0) /HPF Urine RBC (Auto) > 182.0 (0.0-6.0) /HPF U Epithel Cells (Auto) 14.0 H (0-13.0) /HPF Urine Bacteria (Auto) 1+ (Negative) /HPF Urine Mucus Few /HPF Blood Type - Radiology Data Radiology results: report reviewed OBSTETRICAL ULTRASOUND HISTORY: Abdominal pain. FINDINGS: The uterus measures 11.3 x 6.7 x 5.8 cm. The endometrial stripe measures 11 mm. No intrauterine is identified. Right ovary measures 3.5 x 2.9 x 2.7 cm. Left ovary measures 3.6 x 2.4 x 2.7 cm. Both ovaries demonstrate flow. Negative for adnexal mass or fluid. IMPRESSION: 1. Mildly prominent endometrial stripe without intrauterine . 2. Adnexa are unremarkable. Signer Name: Christopher Ovalle MD Signed: 07/16/2020 12:39 AM Workstation Name: [id number] Transcribed By: DARVIN Dictated By: Christopher Ovalle MD Electronically Authenticated By: Christopher Ovalle MD Signed Date/Time: 07/16/2038 DD/ TD/TT: - Medical Decision Making Patient is a 19-year-old female presents emergency room with complaints of vaginal bleeding and lower abdominal cramping that began this morning. She states that she is having to change her pad approximately every hour. She states that the bleeding has been improving. She states her last menstrual cycle was June 02. She denies any fever, vomiting, dysuria. Patient was evaluated in the emergency department on 07/16/2020, and at that time she had a hCG quant of 1046, she had an ultrasound performed which showed 1. Mildly prominent endometrial stripe without intrauterine . 2. Adnexa are unremarkable. She was also prescribed Keflex at that time and states that she has not really been taking it. She states that her OB group is at [facility] and she has an appointment on Sunday (07/23/2020). She denies any past medical history or allergies to medications. /P: 3/A: 0. Vitals are normal. hCG quant today is 155.9. H&H is normal. Patient is Rh+. UA shows evidence of red blood cells, white blood cells, leukocyte Estrace, epithelial cells, patient states that she has not been taking her Keflex, she still has her pills for Keflex. She states that she has not been taking them because it makes her feel nauseous. Patient will be given prescription for Zofran and advised to take the antibiotic with food. Patient's hCG quant has significantly decreased since her last visit, this is most consistent with a miscarriage. Advised patient to keep her appointment with her OB doctor. Please increase your water intake. May take Tylenol [id number] as needed for abdominal cramping. Please take medication as prescribed as needed for nausea. Please take antibiotic with food. Please keep your appointment with your CALL WORKER on 07/23/2020. Today 07/21/2020, your hCG quant is 155.9. It was previously 1046 on 07/16/2020, this is most consistent with a miscarriage. Return to the emergency room for any new or worsening symptoms. Critical care attestation.: If time is entered above; I have spent that time in minutes in the direct care of this critically ill patient, excluding procedure time. ED Disposition Clinical Impression: Spontaneous miscarriage UTI (urinary tract infection) Qualifiers: Urinary tract infection type: acute cystitis Hematuria presence: with hematuria Qualified Code(s): N30.01 - Acute cystitis with hematuria Disposition: DC-01 TO HOME OR SELFCARE Is pt being admited?: No Does the pt Need Aspirin: No Condition: Stable Instructions: Spontaneous Miscarriage (ED), Urinary Tract Infection in Women (ED) Additional Instructions: Please increase your water intake. May take Tylenol [id number] as needed for abdominal cramping. Please take medication as prescribed as needed for nausea. Please take antibiotic with food. Please keep your appointment with your CALL WORKER on 07/23/2020. Today 07/21/2020, your hCG quant is 155.9. It was previously 1046 on 07/16/2020, this is most consistent with a miscarriage. Return to the emergency room for any new or worsening symptoms. Prescriptions: Ondansetron [Zofran Odt] 4 mg PO Q8HR PRN #10 tab.rapdis PRN Reason: Nausea And Vomiting Referrals: [facility] [Provider Group] - 2-3 Days Time of Disposition: 16:56 Print Language: BERMUDIAN
== END 2020-07-21 17:30 | disposition home or self-care (01) ==
LOC: ED 14:36
DX: O03.9 Complete or unspecified spontaneous abortion without complication (principal); O23.41 Unspecified infection of urinary tract in pregnancy, first trimester; Z3A.01 Less than 8 weeks gestation of pregnancy; Z79.1 Long term (current) use of non-steroidal anti-inflammatories (NSAID); Z79.2 Long term (current) use of antibiotics; Z79.899 Other long term (current) drug therapy
CPT/HCPCS: 36415; 80048; 81001; 84702; 85025; 86900; 86901; 87086